=== PATIENT | male | born 1995 | race Caucasian/White ===

== ENCOUNTER 2017-02-09 13:20 | Emergency (ER) | payer SELFPAY ==
--- NOTE | 2017-02-09 13:31 | ER Document Report ---
Addendum entered and electronically signed by BRUCE MOMIN LCSWA 02/10/17 18: 18: Discharge - Discharge Clinical Impression: Depression Qualifiers: Depression Type: unspecified Qualified Code(s): F32.9 - Major depressive disorder, single episode, unspecified Condition: Good Disposition: HOME, SELF-CARE Additional Instructions: DEPRESSION: Your evaluation reveals that you have mental depression. While symptoms may be vague, they often include disturbance of sleep, fatigue, loss of appetite , and general loss of interest in life. While depression may be a side effect of drugs, or a reaction to a major change in your life, many cases have no known cause. If depression is acute, and related to a major loss in your life, you can expect it to clear completely with time. If you have been depressed a long time , are prone to repeated bouts of depression or low mood, or have been thinking of suicide, get help. Depression can be treated with anti-depressant medication and counselling. Long-term depression will often take a few weeks to clear, even with appropriate medication. Follow-up care is important. SUICIDAL IDEATION: Suicidal ideation is a common medical term for thoughts about suicide, which may be as detailed as a formulated plan, without the suicidal act itself. Although most people who undergo suicidal ideation do not commit suicide, some go on to make suicide attempts. The range of suicidal ideation varies greatly from fleeting to detailed planning, role playing, and unsuccessful attempts. While thoughts about suicide are common, most people do not carry out serious actions to commit suicide. Based upon your evaluation and discussion with you, we do not believe you are currently at risk to act upon your thoughts of suicide. You have agreed to return to the Emergency Department, at any time , if you feel inclined to act upon your suicidal thoughts. FOLLOW-UP CARE: If you have been referred to a physician for follow-up care, call the physician s office for an appointment as you were instructed or within the next two days. If you experience worsening or a significant change in your symptoms, notify the physician immediately or return to the Emergency Department at any time for re-evaluation. Original Note: ED Psych Disorder / Suicide - General Mode of Arrival: Medic Information source: Patient <AVIS DAVIS - Last Filed: 02/09/17 23:54> <SHELBI ROBLES - Last Filed: 02/10/17 17:49> - General Stated Complaint: POSSIBLE OVERDOSE Time Seen by Provider: 02/09/17 13:30 Notes: 21-year-old male with history of bipolar depression, OCD, ADHD since he was 4 years old got out of the [employer] 6 months ago. He recently split from his female girlfriend, his grandfather shot himself, both his parents are drug addict in [place], his younger siblings are being sent to different foster homes. Because of these stressors he states he was unable to cope and wanted to today. He cut both of his volar wrist vertically which she has attempted in the past, he took 200 pills of 200 mg ibuprofen (vomited up some pills), drank half a bottle of Clorox toilet bowl ditch cleaner, and he was standing on a chair with a cord around his neck ready to hang himself. The police specialist is not sure who called 911, but the police specialist found him standing on the chair with a cord around his neck. The police specialist did state that he is missing a court date for marijuana use if he is going to stay in the hospital. He is [employer] buddies are here with him. He has been on his own 's since age 16 and join the [employer] age 18. Tetanus is current. (AVIS DAVIS ) - Related Data Allergies/Adverse Reactions: No Known Allergies Allergy (Unverified 02/09/17 14:17) Home Medications: Current Home Medications No Home Medications 02/09/17 [History] Past Medical History - General Information source: Patient - Social History Smoking Status: Current Every Day Smoker Frequency of alcohol use: Occasional Drug Abuse: None Lives with: Alone - His girlfriend just moved out Family History: Other - Both his parents are drug addict in [place] Patient has suicidal ideation: Yes Patient has homicidal ideation: No Psychiatric Medical History: Reports: Hx Attention Deficit Hyperactivity Disorder, Hx Depression, Hx Obsessive Compulsive Disorder <AVIS DAVIS - Last Filed: 02/09/17 23:54> Review of Systems - Review of Systems Constitutional: No symptoms reported EENT: No symptoms reported Cardiovascular: No symptoms reported Respiratory: No symptoms reported Gastrointestinal: No symptoms reported Genitourinary: No symptoms reported Male Genitourinary: No symptoms reported Musculoskeletal: No symptoms reported Skin: See HPI Hematologic/Lymphatic: No symptoms reported Neurological/Psychological: See HPI <AVIS DAVIS - Last Filed: 02/09/17 23:54> Physical Exam - Vital signs Interpretation: Normal - General General appearance: Appears well, Alert In distress: None - HEENT Head: Normocephalic, Atraumatic Eyes: Normal Conjunctiva: Normal Pupils: PERRL Mouth/Lips: Normal Pharynx: Normal Neck: Supple. No: Lymphadenopathy - Respiratory Respiratory status: No respiratory distress Chest status: Nontender Breath sounds: Normal Chest palpation: Normal - Cardiovascular Rhythm: Regular Heart sounds: Normal auscultation Murmur: No - Abdominal Inspection: Normal Distension: No distension Bowel sounds: Normal Tenderness: Nontender. No: Tender Organomegaly: No organomegaly - Back Back: Normal, Tender - left flank, when palpated caused him to dry heave - Extremities General upper extremity: Normal inspection, Nontender, Normal color, Normal ROM , Normal temperature General lower extremity: Normal inspection, Nontender, Normal color, Normal ROM , Normal temperature, Normal weight bearing. No: Rickie's sign - Neurological Neuro grossly intact: Yes Cognition: Normal Orientation: AAOx4 [place] Coma Scale Eye Opening: Spontaneous [place] Coma Scale Verbal: Oriented Nikolas Coma Scale Motor: Obeys Commands Nikolas Coma Scale Total: 15 Speech: Normal Motor strength normal: LUE, RUE, LLE, RLE Sensory: Normal - Psychological Associated symptoms: Normal affect, Normal mood - Skin Skin Temperature: Warm Skin Moisture: Dry Skin Color: Normal Skin irregularity: Laceration - superficial vertical abrasions bilateral forearms <AVIS DAVIS - Last Filed: 02/09/17 23:54> Course - Laboratory Result Diagrams: 02/09/17 13:44 02/09/17 13:44 <AVIS DAVIS - Last Filed: 02/09/17 23:54> - Laboratory Result Diagrams: 02/09/17 13:44 02/09/17 23:55 <SHELBI ROBLES - Last Filed: 02/10/17 17:49> - Re-evaluation Re-evalutation: 02/09/17 14:25 I spoke with poison control who stated that you need to check for calle in the oropharynx and possible esophageal calle. The pH of the half a bottle of Clorox toilet bowl ditch cleaner is 13. She said to look for QRS or QTC changes on EKG. Begin sips of water, if he vomits she would recommend an EGD. Repeat the renal studies 4 hours from the first draw which would be 17:40 4 PM his weight is 74 kg. Patient is willing to stay and be counseled by psych to determine disposition I advised him that I would be having an involuntary commitment due to the multiple attempts on his life today and level of depression, he is worried about financial status but is willing to stay. Consult with Dr. Ramos 02/09/17 14:28 EKG NSR, QTC 407, QT 348. 02/09/17 15:07 Spoke at length with Susannah Gonzalez his godmother at [phone]. She states that he is manipulative and is diagnosed ADHD, OCD, bipolar and he was dishonorably discharged from the [employer] 6 months ago. He is codependent with his estranged mother who was addicted to morphine and oxycodone until one year ago. 02/09/17 15:09 When I went into the room the blood pressure on the monitor was 119/88 not 199 so I believe that whoever saved a blood pressure of 199 systolic was incorrect. the recheck of blood pressure now is 128 systolic. He was able to keep water down without vomiting he does have mild nausea. I will treat with Zofran and the nurse states that she will have the BP corrected in [facility]. 02/09/17 23:55 reviewing the chart and noted that the comprehensive metabolic that I ordered for 17:40 was never drawn. I called Whitney DYER who will assume care and tell nurse to get vital signs and draw the metabolic panel to recheck the BUN/ Creatinine as suggested by [facility] since he took so many ibuprofen. Also the 199 systolic blood pressure was never corrected that the nurse said she would have done. (AVIS DAVIS) 02/10/17 17:47 Pt medically cleared. Repeat BMP does not show any renal dysfunction from NSAID overdose. No effects from possible ingestion of Clorox. Patient seen by mental health. He will be discharged back into [facility] custody and will be going back home to [place] tomorrow. He says that he is not suicidal. (SHELBI ROBLES) - Vital Signs Vital signs: Temp Pulse Resp BP Pulse Ox 97.6 F 72 16 125/72 100 02/10/17 06:57 02/10/17 06:57 02/10/17 06:57 02/10/17 06:57 02/10/17 06:57 - Laboratory Laboratory results interpreted by me: 02/09/17 02/09/17 02/09/17 13:44 13:44 15:38 Seg Neutrophils % 83.8 H Lymphocytes % 11.6 L AST Urine Protein 30 H Urine Ketones 20 H Ur Leukocyte Esterase SMALL H Salicylates < 1.0 L Acetaminophen < 10 L 02/09/17 23:55 Seg Neutrophils % Lymphocytes % AST 72 H Urine Protein Urine Ketones Ur Leukocyte Esterase Salicylates Acetaminophen Discharge <AVIS DAVIS - Last Filed: 02/09/17 23:54> <SHELBI ROBLES - Last Filed: 02/10/17 17:49> - Discharge Clinical Impression: Depression Qualifiers: Depression Type: unspecified Qualified Code(s): F32.9 - Major depressive disorder, single episode, unspecified Condition: Good Disposition: HOME, SELF-CARE Additional Instructions: DEPRESSION: Your evaluation reveals that you have mental depression. While symptoms may be vague, they often include disturbance of sleep, fatigue, loss of appetite , and general loss of interest in life. While depression may be a side effect of drugs, or a reaction to a major change in your life, many cases have no known cause. If depression is acute, and related to a major loss in your life, you can expect it to clear completely with time. If you have been depressed a long time , are prone to repeated bouts of depression or low mood, or have been thinking of suicide, get help. Depression can be treated with anti-depressant medication and counselling. Long-term depression will often take a few weeks to clear, even with appropriate medication. Follow-up care is important. SUICIDAL IDEATION: Suicidal ideation is a common medical term for thoughts about suicide, which may be as detailed as a formulated plan, without the suicidal act itself. Although most people who undergo suicidal ideation do not commit suicide, some go on to make suicide attempts. The range of suicidal ideation varies greatly from fleeting to detailed planning, role playing, and unsuccessful attempts. While thoughts about suicide are common, most people do not carry out serious actions to commit suicide. Based upon your evaluation and discussion with you, we do not believe you are currently at risk to act upon your thoughts of suicide. You have agreed to return to the Emergency Department, at any time , if you feel inclined to act upon your suicidal thoughts. FOLLOW-UP CARE: If you have been referred to a physician for follow-up care, call the physician s office for an appointment as you were instructed or within the next two days. If you experience worsening or a significant change in your symptoms, notify the physician immediately or return to the Emergency Department at any time for re-evaluation.
[2017-02-09 13:57] LABS: ABSOLUTE BASOPHILS # (AUTO) 0.1 10^3/uL (0.0-0.2); ABSOLUTE LYMPHOCYTES (AUTO) 1.1 10^3/uL (0.5-4.7); ABSOLUTE MONOCYTES (AUTO) 0.4 10^3/uL (0.1-1.4); ABSOLUTE NEUT (AUTO) 8.1 10^3/uL (1.7-8.2); BASOPHILS % (AUTO) 0.5 % (0-2); EOSINOPHILS % (AUTO) 0.4 % (0-6); HEMATOCRIT 42.2 % (37.9-51.0); HEMOGLOBIN 14.9 g/dL (13.5-17.0); HGB HCT DIFFERENCE 2.5; LYMPHOCYTES % (AUTO) 11.6 % (13-45); MEAN CORPUSCULAR HEMOGLOBIN 30.1 pg (27.0-33.4); MEAN CORPUSCULAR HGB CONC 35.4 g/dL (32.0-36.0); MEAN CORPUSCULAR VOLUME 85 fl (80-97); MONOCYTES % (AUTO) 3.7 % (3-13); RED BLOOD COUNT 4.96 10^6/uL (4.35-5.55); RED CELL DISTRIBUTION WIDTH 12.7 % (11.5-14.0); SEGMENTED NEUTROPHILS % (AUTO) 83.8 % (42-78); WHITE BLOOD COUNT 9.7 10^3/uL (4.0-10.5)
[2017-02-09 14:10] LABS: ALANINE AMINOTRANSFERASE 39 U/L (21-72); ALBUMIN 4.4 g/dL (3.5-5.0); ALKALINE PHOSPHATASE 88 U/L (38-126); ANION GAP 15 (5-19); ASPARTATE AMINO TRANSFERASE 59 U/L (17-59); BILIRUBIN,DIRECT 0.3 mg/dL (0.0-0.4); BILIRUBIN,TOTAL 1.2 mg/dL (0.2-1.3); BLOOD UREA NITROGEN 16 mg/dL (7-20); CALCIUM 9.8 mg/dL (8.4-10.2); CARBON DIOXIDE 22 mmol/L (22-30); CHLORIDE 106 mmol/L (98-107); CREATININE RESULT 0.95 mg/dL (0.52-1.25); GLUCOSE 101 mg/dL (75-110); POTASSIUM 3.9 mmol/L (3.6-5.0); SODIUM 142.5 mmol/L (137-145); TOTAL PROTEIN 7.2 g/dL (6.3-8.2)
[2017-02-09 14:18] LABS: ALCOHOL < 10 mg/dL (NONE DETECTED)
[2017-02-09] MEDS ORDERED: ONDANSETRON 4 MG TAB.RAPDIS PO ONE (15:07)
[2017-02-09] MEDS ORDERED: NICOTINE 21 MG/24 HR PATCH.TD24 TD ONE (15:49)
[2017-02-09 16:09] LABS: APPEARANCE,URINE SLIGHTLY-CLOUDY; BILIRUBIN,URINE NEGATIVE (NEGATIVE); GLUCOSE, URINE NEGATIVE (NEGATIVE); KETONES,URINE 20 mg/dL (NEGATIVE); LEUKOCYTE ESTERASE,URINE SMALL (NEGATIVE); NITRITE,URINE NEGATIVE (NEGATIVE); PROTEIN,URINE 30 mg/dL (NEGATIVE); URINE SPECIFIC GRAVITY 1.031; UROBILINOGEN,URINE NEGATIVE mg/dL (<2.0)
[2017-02-09 16:11] LABS: URINE BARBITURATES SCREEN NEGATIVE; URINE METHADONE SCREEN NEGATIVE; URINE OPIATES LOW NEGATIVE; URINE PHENCYCLIDINE SCREEN NEGATIVE
[2017-02-10 00:15] LABS: ALANINE AMINOTRANSFERASE 42 U/L (21-72); ALBUMIN 4.3 g/dL (3.5-5.0); ALKALINE PHOSPHATASE 79 U/L (38-126); ANION GAP 13 (5-19); ASPARTATE AMINO TRANSFERASE 72 U/L (17-59); BILIRUBIN,DIRECT 0.2 mg/dL (0.0-0.4); BILIRUBIN,TOTAL 0.8 mg/dL (0.2-1.3); BLOOD UREA NITROGEN 12 mg/dL (7-20); CALCIUM 9.6 mg/dL (8.4-10.2); CARBON DIOXIDE 23 mmol/L (22-30); CHLORIDE 106 mmol/L (98-107); CREATININE RESULT 0.97 mg/dL (0.52-1.25); GLUCOSE 95 mg/dL (75-110); POTASSIUM 3.6 mmol/L (3.6-5.0)
--- NOTE | 2017-02-10 12:06 | EKG REPORT ---
SEVERITY:- NORMAL ECG - SINUS RHYTHM : Confirmed by: Shira Borrero 10-Feb-2017 12:05:24
--- NOTE | 2017-02-10 18:10 | PSYCHOLOGICAL NOTE ---
Psych Note - Psych Note Psych Note: 21-year-old male with history of bipolar depression, OCD, ADHD since he was 4 years old got out of the [facility] 6 months ago. He recently split from his female girlfriend, his grandfather shot himself, both his parents are drug addict in [place], his younger siblings are being sent to different foster homes. Because of these stressors he states he was unable to cope and wanted to today. He cut both of his volar wrist vertically which she has attempted in the past, he took 200 pills of 200 mg ibuprofen (vomited up some pills), drank half a bottle of Clorox toilet bowl grave cleaner, and he was standing on a chair with a cord around his neck ready to hang himself. The police liaison is not sure who called 911, but the police liaison found him standing on the chair with a cord around his neck. The police liaison did state that he is missing a court date for marijuana use if he is going to stay in the hospital. Clinician conducted chart review- attending physician noted "Spoke at length with Susannah Gonzalez his godmother at [phone]. She states that he is manipulative and is diagnosed ADHD, OCD, bipolar and he was dishonorably discharged from the [facility] 6 months ago. He is codependent with his estranged mother who was addicted to morphine and oxycodone until one year ago. " Clinician spoke with patient's friend Luis. He disclosed the patient grandfather just committed suicide recently. He also disclosed they're currently visiting their home because there roommates didn't pay rent. He also stated the patient's girlfriend "up and left today." Patient states he was diagnosed with ADHD, OCD and bipolar. He disclosed that he has tweezers to cut his arms. He continued to state that he wants to go back to [place] because is been very difficult here. Patient states that he drank half a bottle of Clorox toilet bowl grave cleaner and took 200 200 mg ibuprofen. When asked how he knew how many he took he stated that was how many was in the bottle. When asked if it was a new bottle patient stated no and was not a new bottle. Patient states he does not want to hurt himself however he is still depressed. Patient is alert and orientated to person, place, time and circumstance. Mood is euthymic with congruent affect. Patient denies suicidal and homicidal ideation; however, endorses attempting suicide multiple ways previous to [facility] ED arrival. Patient denies auditory and visual hallucinations; patient is not demonstrating behaviour what would be congruent to responding to internal stimuli. No delusions are noted. Thought process is organized and linear. Eye contact was well maintained. Intellectual abilities appear to be within average range. Attention and concentration is fair. Insight, judgment, and impulse control is poor. Clinician notes conversational speech was within normal rate tone and prosody; no hoarseness coughing or sore throat noted. 300.3 (F 14). Obsessive-compulsive disorder per history provided by patient and patient's family 2966.80 (F 31.9) unspecified bipolar and related disorder per history provided by patient and patient's family 314.01 (F90.9) unspecified attention deficit hyperactivity disorder per history provided by patient and patient's family Impression\\plan: Patient is recommended to continue under IVC for overnight observation. Patient will be reevaluated tomorrow. Dr. Segura was consulted on a care management of this patient attending physician is in agreement with recommendations and disposition.
--- NOTE | 2017-02-10 18:17 | PSYCHOLOGICAL NOTE ---
Psych Note - Psych Note Psych Note: 21-year-old male with history of bipolar depression, OCD, ADHD since he was 4 years old got out of the [employer] 6 months ago. He recently split from his female girlfriend, his grandfather shot himself, both his parents are drug addict in [place], his younger siblings are being sent to different foster homes. Because of these stressors he states he was unable to cope and wanted to today. He cut both of his volar wrist vertically which she has attempted in the past, he took 200 pills of 200 mg ibuprofen (vomited up some pills), drank half a bottle of Clorox toilet bowl high pressure cleaner, and he was standing on a chair with a cord around his neck ready to hang himself. The police cadet is not sure who called 911, but the police cadet found him standing on the chair with a cord around his neck. The police cadet did state that he is missing a court date for marijuana use if he is going to stay in the hospital. Patient disclosed that his aunt will be coming once he is discharged to take her back to [place]. He continued disclosed that he feels that this is a good change for him. Patient states he would like to receive outpatient services. He disclosed that he has been sleeping a lot since his arrival to [facility]. Clinician spoke with patient's stepmother Mandy. She disclosed that she is willing to cloth picker the patient's and ensure the patient has no access to prescription medication or [id number] medications or weapons. She continue disclosed that she feels comfortable caring for the patient until the patient's godmother comes tomorrow to pick him up to take him back to [place]. She continued disclosed the family is supporting the patient. Patient is alert and orientated to person, place, time and circumstance. Mood is euthymic with congruent affect. Patient denies suicidal and homicidal ideation; however, endorses attempting suicide multiple ways previous to [facility] ED arrival. Patient denies auditory and visual hallucinations; patient is not demonstrating behaviour what would be congruent to responding to internal stimuli. No delusions are noted. Thought process is organized and linear. Eye contact was well maintained. Intellectual abilities appear to be within average range. Attention and concentration is fair. Insight, judgment, and impulse control is poor. Clinician notes conversational speech was within normal rate tone and prosody; no hoarseness coughing or sore throat noted. 300.3 (F 14). Obsessive-compulsive disorder per history provided by patient and patient's family 2966.80 (F 31.9) unspecified bipolar and related disorder per history provided by patient and patient's family 314.01 (F90.9) unspecified attention deficit hyperactivity disorder per history provided by patient and patient's family Impression\plan: Patient is recommended for rescind of IVC is considered psychiatrically cleared for discharge. Patient does not meet IVC criteria per [place] GS 122C. Patient's discharge plan includes patient's stepmother picking the patient up to ensure patient has no access to any substances or weapons. Continuation of discharge plan includes patient's godmother driving from [place] and picking the patient up tomorrow from his stepmother's house and taking him back to [place] for outpatient services. Patient is recommended to follow up within 3-5 days with local outpatient resources in [place]. Colton Lopez was consulted on a care management of this patient attending physician is in agreement with recommendations and disposition.
[2017-02-10 18:48] VITALS: BP 121/71
== END 2017-02-10 18:30 | disposition home or self-care (01) ==
LOC: ER 13:20
DX: S61.512A Laceration without foreign body of left wrist, initial encounter (principal); S61.511A Laceration without foreign body of right wrist, initial encounter; T39.312A Poisoning by propionic acid derivatives, intentional self-harm, initial encounter; T54.92XA Toxic effect of unspecified corrosive substance, intentional self-harm, initial encounter; F32.9 Major depressive disorder, single episode, unspecified; X83.8XXA Intentional self-harm by other specified means, initial encounter; F42.9 Obsessive-compulsive disorder, unspecified; F90.9 Attention-deficit hyperactivity disorder, unspecified type; F17.200 Nicotine dependence, unspecified, uncomplicated; R11.0 Nausea
CPT/HCPCS: 93005; 99285; 36415; 80307 ×4; 85025; 80053; 81001; 93010; S0119